=== PATIENT | female | born 1965 | race Caucasian/White ===

== ENCOUNTER 2019-01-24 18:15 | Emergency (ER) | payer MEDICAID ==
[~2019-01-24] VITALS: Ht 157.5 cm; Wt 88.9 kg
[2019-01-24 18:30] VITALS: BP 122/85
--- NOTE | 2019-01-24 18:35 | NUR ---
PT TO BED 5 WITH STEADY GAIT
--- NOTE | 2019-01-24 18:50 | NUR ---
53/F C/O ABSCESS TO PTS CHIN X 1-2 WEEK. NO DRAINAGE. PT TRIED TO "POP" THE ABSCESS. PT ADDS COLD SYMPTOMS, SORE THROAT 8/10, PRODUCTIVE COUGH. STATES FEELS LIKE SOMETHING STUCK IN THROAT, PAIN WITH SWALLOWING. DENIES FEVER, SOB. LUNGS CTAB. OROPHARYNX MILD DIFFUSE ERYTHEMA. NO EXUDATES. ABSCESS ON CHIN WITH SCABBING. NO ACTIVE DRAINAGE. PMH- ASTHMA, DM, HTN
[2019-01-24] MEDS ORDERED: LIDOCAINE/EPI 1% 1:100000 20 ML VIAL INJ STA (19:15)
[2019-01-24] MEDS ORDERED: CEPHALEXIN 500 MG CAP PO STA (19:15)
[2019-01-24] MEDS ORDERED: SULFAMETH/TRIMETH DS 800/160MG 1 TAB PO STA (19:15)
--- NOTE | 2019-01-24 19:19 | NUR ---
REPORT TO PATEL HAYES. PT IN STABLE CONDITION. TX OF CARE AT THIS TIME.
--- NOTE | 2019-01-24 19:25 | NUR ---
DR. THOMAS BEDSIDE EVALUATING PT
--- NOTE | 2019-01-24 19:51 | NUR ---
PT. STATED THAT SHE ALREADY HAD TDAP VACCINE. EDUCATED PATIENT ON TDAP. WILL CONTINUE TO MONITOR.
[2019-01-24 20:07] VITALS: BP 136/72
--- NOTE | 2019-01-24 20:07 | NUR ---
Patient discharged with v/s stable. Written and verbal after care instructions given and explained. Patient alert, oriented and verbalized understanding of instructions. Ambulatory with to car. All questions addressed prior to discharge. ID band removed. Patient advised to follow up with PMD. Rx of BACTRIM; KEFLEX given. Patient educated on indication of medication including possible reaction and side effects. Opportunity to ask questions provided and answered.
== END 2019-01-24 20:07 | disposition home or self-care (01) ==
LOC: MED 18:15
DX: L02.01 Cutaneous abscess of face (principal); L03.211 Cellulitis of face; L02.413 Cutaneous abscess of right upper limb; J45.909 Unspecified asthma, uncomplicated; E11.9 Type 2 diabetes mellitus without complications; I10 Essential (primary) hypertension
CPT/HCPCS: 10061; 99284; J2001; 90715; 99283

== ENCOUNTER 2019-02-24 14:25 | Inpatient (IN) | payer MEDICAID ==
[~2019-02-24] VITALS: Ht 157.5 cm; Wt 88.9 kg
[2019-02-24 14:30] VITALS: BP 126/67
--- NOTE | 2019-02-24 14:42 | NUR ---
PT AMBULATED TO BED 3
--- NOTE | 2019-02-24 14:48 | NUR ---
PATIENT BIB WITH C/O DIZZINESS AND WEAKNESS X4 WKS. THIS MORNING PT HAD CHEST PAIN RADIATING TO RIGHT ARM NUMBNESS, LASTED 15 MINUTE. DENIES PAIN AT THIS TIME. HX OF HTN. PATIENT IS AAOX4 LUNGS CLEAR BL; HR EVEN AND REGULAR; PT DENIES ANY FEVER, CP, SOB, OR COUGH AT THIS TIME; DENIES N/V/D; SKIN IS PINK/WARM/DRY; DENIES PAIN VSS; PATIENT POSITIONED FOR COMFORT; HOB ELEVATED; BEDRAILS UP X2; BED DOWN. ER MD MADE AWARE OF PT STATUS.
--- NOTE | 2019-02-24 15:46 | NUR ---
Patient being evaluated by SHARDA RODRIGUEZ at bedside.
[2019-02-24] MEDS ORDERED: ASPIRIN 325 MG TAB PO ONE (15:55)
--- NOTE | 2019-02-24 16:00 | NUR ---
PATIENT C/O CHEST PAIN COMING BACK AGAIN, DR. ROBIN AWARE, WILL MEDICATED.
[2019-02-24 16:20] LABS: BASOPHILS % (AUTO) 0.5 % (0.0-2.0); EOSINOPHILS # (AUTO) 0.1 K/uL (0-0.4); EOSINOPHILS % (AUTO) 1.7 % (0.0-4.0); HEMATOCRIT 35.2 % (36-48); HEMOGLOBIN 11.4 g/dL (12.0-16.0); LYMPHOCYTES # (AUTO) 2.1 K/uL (2.5-16.5); LYMPHOCYTES % (AUTO) 47.6 % (20.5-51.1); MEAN CORPUSCULAR HEMOGLOBIN 26 pg (27-31); MEAN CORPUSCULAR HGB CONC 33 g/dL (33-37); MEAN CORPUSCULAR VOLUME 80.7 fL (80-94); MONOCYTES # (AUTO) 0.3 K/uL (0.8-1.0); MONOCYTES % (AUTO) 6.3 % (1.7-9.3); NEUTROPHILS # (AUTO) 1.9 K/uL (1.8-7.7); NEUTROPHILS % (AUTO) 43.9 % (42.2-75.2); PLATELET COUNT (AUTO) 222 K/uL (140-450); RED BLOOD CELL COUNT(AUTO) 4.37 MIL/uL (4.20-5.40); WHITE BLOOD COUNT (AUTO) 4.4 K/uL (4.8-10.8)
[2019-02-24 16:43] LABS: CHOL/HDL RATIO 4.5 (1-4.5)
--- NOTE | 2019-02-24 17:00 | NUR ---
PT STATED FEELING BETTER NOW, VSS, DENIES PAIN.
[2019-02-24 17:08] LABS: ALBUMIN 3.1 g/dL (3.4-5.0); ANION GAP 11.9 (8-16); CARBON DIOXIDE 26.6 mmol/L (21-32); CREATININE 1.2 mg/dL (0.6-1.3); POTASSIUM 4.5 mmol/L (3.5-5.1); TOTAL BILIRUBIN 0.2 mg/dL (0.0-1.0)
[2019-02-24] MEDS ORDERED: ATORVASTATIN 80 MG TAB PO ONE (17:25)
[2019-02-24] MEDS ORDERED: NACL 0.9% 1,000 ML IV ONE (17:25)
[2019-02-24] MEDS ORDERED: INSULIN REGULAR, HUMAN 100 UNIT/ML VIAL IVP ONE (17:25)
[2019-02-24] MEDS ORDERED: DOCUSATE SODIUM 100 MG GELCAP PO PRN (17:30)
[2019-02-24] MEDS ORDERED: HYDROcodone/APAP 7.5/325 MG 1 TAB PO PRN (17:30)
[2019-02-24] MEDS ORDERED: ACETAMINOPHEN 325 MG TAB PO PRN (17:30)
[2019-02-24] MEDS ORDERED: ONDANSETRON 4 MG/2 ML VIAL IM/IVP PRN (17:30)
[2019-02-24] MEDS ORDERED: MORPHINE SULFATE 2 MG/ML SYR IVP PRN (17:30)
[2019-02-24] MEDS ORDERED: DEXTROSE 50% 50 ML SYR IVP PRN (17:30)
[2019-02-24 17:34] LABS: APPEARANCE,URINE CLEAR (CLEAR); BILIRUBIN,URINE NEGATIVE (NEGATIVE); BLOOD, URINE NEGATIVE (NEGATIVE); COLOR,URINE YELLOW (YELLOW); LEUKOCYTE ESTERASE ,URINE NEGATIVE (NEGATIVE); NITRITE, URINE NEGATIVE (NEGATIVE); UGLUCOSE 3+ (NEGATIVE)
--- NOTE | 2019-02-24 17:34 | NUR ---
IV INSERTED TO RIGHT AC 20GA WITH GOOD BLOOD RETURN, NS BOLUS STARTED, PT TOLERATED WELL.
[2019-02-24] MEDS ORDERED: DIPH50CA69 PO ×2 (17:48→19:28)
[2019-02-24] MEDS ORDERED: HYDR-5122 PO (17:48)
[2019-02-24] MEDS ORDERED: HUM SUBQ (17:48)
[2019-02-24] MEDS ORDERED: LISI-420 PO ×2 (17:48→19:28)
[2019-02-24] MEDS ORDERED: ATOR40TA PO (17:48)
[2019-02-24] MEDS ORDERED: GABA100C PO (17:48)
[2019-02-24] MEDS ORDERED: FLUO20CA27 PO ×2 (17:48→19:28)
[2019-02-24] MEDS ORDERED: TEMA30CA23 PO ×2 (17:48→19:28)
[2019-02-24] MEDS ORDERED: INSU100S22 SUBQ (17:48)
[2019-02-24] MEDS ORDERED: BACL10TA4 PO ×3 (17:48→19:28)
[2019-02-24] MEDS ORDERED: METF-350 PO (17:53)
[2019-02-24] MEDS ORDERED: NAPR-1003 PO ×2 (17:53→19:28)
[2019-02-24] MEDS ORDERED: GABA-638 PO ×2 (17:53→19:28)
[2019-02-24] MEDS ORDERED: METO-486 PO ×2 (17:53→19:28)
[2019-02-24] MEDS ORDERED: BENZ0.5T85 PO (17:53)
[2019-02-24] MEDS ORDERED: CLON0.1T42 PO ×2 (17:53→19:28)
[2019-02-24] MEDS ORDERED: OMEP40EC24 PO (17:53)
[2019-02-24 17:56] LABS: RBC,URINE NONE SEEN /HPF (0-5)
[2019-02-24 17:57] LABS: WBC,URINE NONE SEEN /HPF (0-5); YEAST,URINE Moderate /HPF (None Seen)
--- NOTE | 2019-02-24 18:00 | NUR ---
NOT ABLE TO GIVE LIPITOR 80 MG AT THIS TIME DUE TO MEDICATION NOT AVAILABLE, FAMILY LAWYER AWARE, DR. ROBIN AWARE.
[2019-02-24 18:11] LABS: BARBITURATE, URINE NEG. ng/ml (NEG <=200); BENZODIAZEPINE, URINE NEG. ng/mL (NEG <=200); CANNABINOID, URINE NEG. ng/mL (NEG <=50); COCAINE, URINE NEG. ng/mL (NEG <=300); OPIATE, URINE NEG. ng/mL (NEG <=2000); PHENCYCLIDINE SCREEN,URINE NEG. ng/mL (NEG <=25)
--- NOTE | 2019-02-24 18:15 | NUR ---
RECEIVED PT FROM ED NURSE HARRIS. PT AWAKE, ALERT AND AMBULATORY. IV SITE R AC 20 G. SKIN INTACT, HOWEVER, SMALL SORES ARE NOTED SCATTERED THROUGHOUT ALL THE EXTREMITIES. WILL CULTURE THE SORES. OTHERWISE SKIN IS INTACT. ON ROOM AIR. IS AT BEDSIDE.
--- NOTE | 2019-02-24 18:15 | NUR ---
Patient admitted to care of DR. LÓPEZ. Admited to TELEMETRY ROOM 126A, Belongings list completed. Report to ANIRUDH RN AT BEDSIDE, PATIENT VSS, DENIES PAIN AT THIS TIME.
[2019-02-24 18:25] LABS: MAGNESIUM 1.9 mg/dL (1.8-2.4); PHOSPHORUS 3.4 mg/dL (2.5-4.9); THYROID STIMULATING HORMONE 1.67 uIU/mL (0.34-3.74)
--- NOTE | 2019-02-24 18:35 | NUR ---
PT SEEN BY DR OLEA.
--- NOTE | 2019-02-24 18:53 | NUR ---
VITALS UPON ADMISSION: BP 107/64, HR 74, O2 99, TEMP 98.0, RR 18.
--- NOTE | 2019-02-24 18:53 | NUR ---
CURRENT BLOOD GLUCOSE IS 240
[2019-02-24] MEDS: NICOTINE TRANSD SYS 14 MG/24 HR PATCH TD SCH (19:15)
--- NOTE | 2019-02-24 19:22 | NUR ---
PT ENDORSED TO ADJUSTER LEADER NURSE IN STABLE CONDITION. NURSE CARLENE ENDORSED TO TAKE A SWAB OF PT'S SKIN SORES FOR CULTURES
--- NOTE | 2019-02-24 19:23 | NUR ---
RECEIVED PT FROM AM SHIFT; PT ON BED, AWAKE ALERT ORIENTED X 4, PT ABLE TO AMBULATE W/ STEADY GAIT. W/ AT BEDSIDE. WITH IV ON THE RIGHT AC G 20, WILL START IV ORDERED. PT RECENTLY CAME FROM ED ENDORSED. PT EATING AT THIS TIME, ABLE TO TOLERATE CCHO DIET. ORIENTED TO UNIT. PLACED ON LOW BED POSITION.
[2019-02-24] MEDS ORDERED: METF1000 PO (19:28)
[2019-02-24] MEDS ORDERED: NITROGLYCERIN 0.4 MG TAB SL PRN (19:50)
[2019-02-24] MEDS ORDERED: NAPROXEN SODIUM 500 MG PO SCH (19:55)
[2019-02-24] MEDS ORDERED: diphenhydrAMINE 50 MG CAP PO SCH ×2 (19:55→20:19)
[2019-02-24 20:00] VITALS: BP 120/59
[2019-02-24] MEDS ORDERED: FLUCONAZOLE 100 MG TAB PO ONE (20:15)
[2019-02-24] MEDS: NACL 0.9% 1,000 ML IV SCH (20:39)
--- NOTE | 2019-02-24 20:40 | NUR ---
PT DOS NOT WANT HER NICOTINE PATCH TO BE APPLIED. SHE SAID SHE SMOKES ONLY 3-4 CIGARETTES OCCASIONALLY. AND FINISHING THE WHOLE PACK FOR CIGARETTES OCCASIONALLY TOO. INFORMED HER THE RISKS AND BENEFITS AND WILL INFORM DR. MORELAND.
[2019-02-24] MEDS ORDERED: cloNIDine 0.1 MG TAB PO SCH (21:00)
[2019-02-24] MEDS ORDERED: metFORMIN 500 MG TAB PO SCH (21:00)
[2019-02-24] MEDS: BLOOD GLUCOSE MONITORING 1 DEV DEV FS SCH (21:17)
--- NOTE | 2019-02-24 21:27 | NUR ---
PT SAID SHE DOES NOT WANT TAKE HER CLONIDINE CATAPRES 0.2 MG. SHE SAID THAT SHE NEVER TAKES THAT. INFORMED DR. MANN, AND HER BP IS 120/59; HR 80; 98%; 0/10 PAIN. 98. 3 TEMP
[2019-02-24] MEDS: INSULIN LISPRO SLIDING SCALE 100 UNITS/ML VIAL SUBQ PRN (21:32)
--- NOTE | 2019-02-24 21:53 | NUR ---
INFORMED PHARAMACY THAT BENZTROPIN FOR VERIFICATION. SHE SAID THAT SHE WILL DO IT.BUT HAVING HARD TIME IN THE SYSTEM FOR NOW DUE TO THE ORDER
[2019-02-24] MEDS: BENZTROPINE 1 MG TAB PO SCH (22:07)
[2019-02-24] MEDS: TEMAZEPAM 15 MG CAP PO SCH (22:08)
[2019-02-24] MEDS: INSULIN LANTUS 100 UNITS/ML 10 ML VIAL SUBQ SCH (22:11)
[2019-02-24] MEDS: LISINOPRIL 20 MG TAB PO SCH (22:17)
[2019-02-24] MEDS: METOCLOPRAMIDE 10 MG TAB PO SCH (22:17)
[2019-02-25] VITALS: BP 120/50
--- NOTE | 2019-02-25 00:02 | NUR ---
FOR ANH CEBALLOS WHEELED TO THE NUCLEAR MED Addendum: 02/25/19 at 0218 by Jordyn Banks RN MIKE DALEY
--- NOTE | 2019-02-25 02:04 | NUR ---
PT GIVEN MORPHINE, PT SAID ABD PAIN IS 01/04 Addendum: 02/25/19 at 0804 by Jordyn Banks RN DELETE NOTE- DIFFERENT PATIENT
[2019-02-25 04:00] VITALS: BP 101/52
[2019-02-25] MEDS: BLOOD GLUCOSE MONITORING 1 DEV DEV FS SCH ×4 (05:43→20:02)
[2019-02-25] MEDS: NACL 0.9% 1,000 ML IV SCH (06:16)
--- NOTE | 2019-02-25 06:18 | NUR ---
PT ABDOMINAL PAIN 11/04, ADMINISTERED MORPHINE, WILL RE-ASSESS LATER. Addendum: 02/25/19 at 0804 by Jordyn Banks RN DELETE NOTE- DIFFERENT PATIENT
[2019-02-25] MEDS: INSULIN LISPRO SLIDING SCALE 100 UNITS/ML VIAL SUBQ PRN ×4 (06:23→21:34)
[2019-02-25] MEDS: METOCLOPRAMIDE 10 MG TAB PO SCH ×4 (06:30→21:21)
--- NOTE | 2019-02-25 07:20 | NUR ---
ENDORSED TO AM SHIFT PT IN STABLE CONDITION
--- NOTE | 2019-02-25 07:21 | NUR ---
PATIENT HANDOFF REPORT CONDUCTED BY PHYSICAL THERAPY ASSISTANT NURSE FOR CONTINUITY OF CARE. PATIENT IS RESTING IN BED, NORMAL SALINE RUNNING IN RIGHT AC. PATIENT TOLERATING WELL. BED IN LOWEST POSITION, CALL LIGHT ON AND WITHIN REACH. WILL CONTINUE TO MONITOR.
[2019-02-25 07:23] LABS: BASOPHILS % (AUTO) 0.3 % (0.0-2.0); EOSINOPHILS # (AUTO) 0.1 K/uL (0-0.4); EOSINOPHILS % (AUTO) 1.6 % (0.0-4.0); HEMATOCRIT 33.2 % (36-48); LYMPHOCYTES # (AUTO) 2.5 K/uL (2.5-16.5); LYMPHOCYTES % (AUTO) 52.8 % (20.5-51.1); MEAN CORPUSCULAR HEMOGLOBIN 27 pg (27-31); MEAN CORPUSCULAR HGB CONC 33 g/dL (33-37); MEAN CORPUSCULAR VOLUME 79.5 fL (80-94); MONOCYTES # (AUTO) 0.3 K/uL (0.8-1.0); MONOCYTES % (AUTO) 6.5 % (1.7-9.3); NEUTROPHILS # (AUTO) 1.9 K/uL (1.8-7.7); NEUTROPHILS % (AUTO) 38.8 % (42.2-75.2); PLATELET COUNT (AUTO) 202 K/uL (140-450); RED BLOOD CELL COUNT(AUTO) 4.17 MIL/uL (4.20-5.40); RED CELL DISTRIBUTION WIDTH 14.9 % (11.6-13.7); WHITE BLOOD COUNT (AUTO) 4.8 K/uL (4.8-10.8)
[2019-02-25 08:00] VITALS: BP 107/56
[2019-02-25 08:01] LABS: MAGNESIUM 1.8 mg/dL (1.8-2.4); PHOSPHORUS 3.2 mg/dL (2.5-4.9)
[2019-02-25] MEDS ORDERED: BACLOFEN 10 MG TAB PO SCH (09:00)
[2019-02-25] MEDS ORDERED: NON-FORMULARY ITEM (Omeprazole* (Prilosec*) 1 CAP) PO SCH (09:00)
[2019-02-25] MEDS: NICOTINE TRANSD SYS 14 MG/24 HR PATCH TD SCH (09:00)
--- NOTE | 2019-02-25 09:30 | NUR ---
PATIENT IS IN BED RESTING, MEDICATIONS ADMINISTERED AND TOLERATED WELL. PATIENT REFUSED NICOTINE PATCH. PATIENT REPORTS MILD CHEST MUSCLE PAIN. BED IN LOW POSITION, CALL LIGHT ON AND WITHIN REACH. WILL CONTINUE TO MONITOR.
[2019-02-25] MEDS: LISINOPRIL 20 MG TAB PO SCH ×2 (09:40→21:27)
[2019-02-25] MEDS: BENZTROPINE 1 MG TAB PO SCH ×2 (09:41→21:21)
[2019-02-25] MEDS: ATORVASTATIN 20 MG TAB PO SCH (09:41)
[2019-02-25] MEDS: FLUoxetine 20 MG CAP PO SCH (09:41)
[2019-02-25] MEDS: GABAPENTIN 300 MG CAP PO SCH ×3 (09:41→16:38)
[2019-02-25] MEDS: ASPIRIN 81 MG TAB.CHEW PO SCH (09:42)
[2019-02-25 09:49] LABS: ANION GAP 14.5 (8-16); CARBON DIOXIDE 22.4 mmol/L (21-32); CREATININE 0.6 mg/dL (0.6-1.3); POTASSIUM 3.9 mmol/L (3.5-5.1)
[2019-02-25 09:52] LABS: CHOL/HDL RATIO 3.8 (1-4.5)
[2019-02-25] MEDS: PANTOPRAZOLE 40 MG TABEC PO SCH (10:32)
--- NOTE | 2019-02-25 11:09 | NUR ---
PATIENT IS SLEEPING IN BED, OBSERVED CHEST RISE AND FALL. NO SIGNS OF DISTRESS NOTED AT THIS TIME. PATIENT MADE A PHONE CALL TO HER . CALL LIGHT ON AND WITHIN REACH, BED IN LOW POSITION, WILL CONTINUE TO MONITOR.
[2019-02-25 12:00] VITALS: BP 105/68
[2019-02-25] MEDS ORDERED: BACLOFEN 10 MG TAB PO PRN (12:15)
--- NOTE | 2019-02-25 13:46 | NUR ---
FREQUENT ROUNDING ON PT PT APPEARS STABLE AND IN NO APPARENT DISTRESS ALL SAFETY MEASURES ARE IN PLACE WILL CONTINUE TO MONITOR
--- NOTE | 2019-02-25 15:38 | NUR ---
FREQUENT ROUNDING ON PT PT APPEARS STABLE AND IN NO APPARENT DISTRESS. ALL SAFETY MEASURES ARE IN PLACE.
[2019-02-25 16:00] VITALS: BP 129/77
[2019-02-25] MEDS: metFORMIN 500 MG TAB PO SCH (16:38)
--- NOTE | 2019-02-25 17:30 | NUR ---
PATIENT IS RESTING IN BED, FAMILY AT BEDSIDE, INSULIN GIVEN FOR HIGH BLOOD GLUCOSE. PATIENT IS EATING DINNER, TOLERATING WELL. BED IN LOW POSITION, CALL LIGHT ON WITHIN REACH. WILL CONTINUE TO MONITOR.
[2019-02-25 20:00] VITALS: BP 139/73
[2019-02-25] MEDS: TEMAZEPAM 15 MG CAP PO SCH (21:21)
[2019-02-25] MEDS: INSULIN LANTUS 100 UNITS/ML 10 ML VIAL SUBQ SCH (21:29)
--- NOTE | 2019-02-25 22:00 | NUR ---
PATENT MEDICATED; NO SIGNS AND SYMPTOMS OF DISTRESS.NO COMPLAINTS OF PAIN.WILL; CONTINUE TO MONITOR
[2019-02-26] VITALS: BP 120/68
[2019-02-26 05:54] VITALS: BP 121/70
[2019-02-26] MEDS: BLOOD GLUCOSE MONITORING 1 DEV DEV FS SCH ×2 (06:16→11:42)
[2019-02-26] MEDS: INSULIN LISPRO SLIDING SCALE 100 UNITS/ML VIAL SUBQ PRN ×2 (06:17→12:25)
--- NOTE | 2019-02-26 07:20 | NUR ---
RECEIVED PT FROM STRESS ANALYST NURSE AT BEDSIDE FOR CONTINUITY OF CARE; PT ON BED, AWAKE ALERT ORIENTED X 4, PT ABLE TO AMBULATE W/ STEADY GAIT TO BATHROOM. IV ON THE RIGHT AC G 20, SALINE LOCKED. UPDATED BOARD. UPDATED PATIENT WITH PLAN OF CARE. PATIENT DENIES PAIN. RESPIRATIONS EVEN AND UNLABORED ON ROOM AIR. NO SOB OR DISTRESS NOTED. CALL LIGHT WITHIN REACH, WILL CONTINUE TO MONITOR PATIENT.
[2019-02-26 07:29] LABS: BASOPHILS % (AUTO) 0.3 % (0.0-2.0); EOSINOPHILS # (AUTO) 0.1 K/uL (0-0.4); EOSINOPHILS % (AUTO) 1.3 % (0.0-4.0); HEMATOCRIT 34.5 % (36-48); HEMOGLOBIN 11.2 g/dL (12.0-16.0); MEAN CORPUSCULAR HEMOGLOBIN 26 pg (27-31); MEAN CORPUSCULAR HGB CONC 33 g/dL (33-37); MEAN CORPUSCULAR VOLUME 79.5 fL (80-94); MONOCYTES # (AUTO) 0.4 K/uL (0.8-1.0); MONOCYTES % (AUTO) 7.8 % (1.7-9.3); NEUTROPHILS # (AUTO) 2.9 K/uL (1.8-7.7); NEUTROPHILS % (AUTO) 53.6 % (42.2-75.2); PLATELET COUNT (AUTO) 213 K/uL (140-450); RED BLOOD CELL COUNT(AUTO) 4.33 MIL/uL (4.20-5.40); RED CELL DISTRIBUTION WIDTH 15.5 % (11.6-13.7); WHITE BLOOD COUNT (AUTO) 5.3 K/uL (4.8-10.8)
[2019-02-26 07:36] VITALS: BP 105/58
--- NOTE | 2019-02-26 07:43 | NUR ---
DOCTORS DOING THE ROUNDS. WILL WAIT FOR THEIR ORDERS.
[2019-02-26] MEDS: METOCLOPRAMIDE 10 MG TAB PO SCH ×2 (07:45→11:54)
[2019-02-26] MEDS: metFORMIN 500 MG TAB PO SCH (07:46)
--- NOTE | 2019-02-26 07:46 | NUR ---
SCHEDULED MEDICATIONS GIVEN. PATIENT TOLERATED THEM WELL. PT CURRENTLY SITTING UP IN BED EATING BREAKFAST. WILL CONTINUE TO MONITOR PATIENT.
[2019-02-26 07:47] LABS: ANION GAP 11.5 (8-16); CARBON DIOXIDE 25.5 mmol/L (21-32); CREATININE 0.7 mg/dL (0.6-1.3)
[2019-02-26 07:49] LABS: MAGNESIUM 1.8 mg/dL (1.8-2.4); PHOSPHORUS 3.9 mg/dL (2.5-4.9)
[2019-02-26 08:07] LABS: T4 (THYROXINE) 7.2 ug/dL (4.5-12.0)
[2019-02-26] MEDS: FLUoxetine 20 MG CAP PO SCH (08:19)
[2019-02-26] MEDS: ATORVASTATIN 20 MG TAB PO SCH (08:19)
[2019-02-26] MEDS: ASPIRIN 81 MG TAB.CHEW PO SCH (08:19)
[2019-02-26] MEDS: BENZTROPINE 1 MG TAB PO SCH (08:20)
[2019-02-26] MEDS: GABAPENTIN 300 MG CAP PO SCH ×2 (08:20→12:00)
[2019-02-26] MEDS: PANTOPRAZOLE 40 MG TABEC PO SCH (08:20)
[2019-02-26] MEDS: LISINOPRIL 20 MG TAB PO SCH (08:20)
[2019-02-26] MEDS: NICOTINE TRANSD SYS 14 MG/24 HR PATCH TD SCH (08:28)
--- NOTE | 2019-02-26 08:30 | NUR ---
SCHEDULED MEDICATIONS GIVEN. PATIENT TOLERATED THEM WELL. DISCHARGE QUESTIONS ANSWERED. INFORMED PATIENT ABOUT DISCHARGE PROCESS. WILL UPDATE PATIENT WITH DISCHARGE PROCESS. WILL CONTINUE TO MONITOR PATIENT.
[2019-02-26] MEDS ORDERED: BACL10TA4 PO (08:44)
[2019-02-26] MEDS ORDERED: METF500T PO (08:44)
--- NOTE | 2019-02-26 08:52 | NUR ---
PATIENT HAS BEEN SCREENED AND CATEGORIZED MODERATE NUTRITION RISK. PATIENT WILL BE SEEN WITHIN 3-5 DAYS OF ADMISSION. 02/27/19 03/01/[address]
--- NOTE | 2019-02-26 10:45 | NUR ---
SPORTS BOOK SERVER ASHWIN SCOTT TO SPEAK WITH PATIENT.
[2019-02-26 12:00] VITALS: BP 131/65
--- NOTE | 2019-02-26 13:05 | NUR ---
AT BEDSIDE. DISCHARGE INSTRUCTIONS AND EDUCATION GIVEN TO PATIENT. PRESCRIPTION GIVEN TO PATIENT. INFORMED PATIENT ABOUT FOLLOW UP WITH PCP ON THURSDAY 03/01, TAKE ALL MEDICATIONS PRESCRIBED, GO TO ER IF SUFFERING ANY SYMPTOMS. PATIENT VERBALIZED UNDERSTANDING. IV REMOVED, IV CATHETER INTACT, MINIMAL BLEEDING NOTED. ID BANDS CUT. PATIENT WILL NOW DRESS IN HER CLOTHING AND GET READY TO BE DISCHARGED HOME.
--- NOTE | 2019-02-26 13:20 | NUR ---
PATIENT AMBULATED OFF FLOOR WITH SHAQUILLE DUKE TO BE DISCHARGED HOME WITH HER . PATIENT IN STABLE CONDITION AND TOOK ALL HER BELONGINGS WITH HER.
== END 2019-02-26 13:22 | disposition home or self-care (01) | DRG 420 ==
LOC: MED 14:25 → MMU 17:30
PROVIDERS: ADMIT General Practice; ATTEND General Practice
DX: E11.00 Type 2 diabetes mellitus with hyperosmolarity without nonketotic hyperglycemic-hyperosmolar coma (NKHHC) (principal); G93.41 Metabolic encephalopathy; E87.2 Acidosis; E44.1 Mild protein-calorie malnutrition; E11.40 Type 2 diabetes mellitus with diabetic neuropathy, unspecified; B37.9 Candidiasis, unspecified; E87.1 Hypo-osmolality and hyponatremia; I10 Essential (primary) hypertension; E78.5 Hyperlipidemia, unspecified; F32.9 Major depressive disorder, single episode, unspecified; K21.9 Gastro-esophageal reflux disease without esophagitis; E86.0 Dehydration; G47.51 Confusional arousals; F51.9 Sleep disorder not due to a substance or known physiological condition, unspecified; F17.200 Nicotine dependence, unspecified, uncomplicated; F41.1 Generalized anxiety disorder; Z68.35 Body mass index [BMI] 35.0-35.9, adult; Z83.3 Family history of diabetes mellitus; Z82.49 Family history of ischemic heart disease and other diseases of the circulatory system; Z80.0 Family history of malignant neoplasm of digestive organs; Z91.19 Patient's noncompliance with other medical treatment and regimen
CPT/HCPCS: 36415; 36600; 70450; 71045; 80048; 80053; 80305; 81001; 82140; 82150; 82550; 82553; 82803; 82948; 83036; 83605; 83690; 83735; 83880; 84100; 84436; 84443; 84484; 85025; 85379; 85610; 85730; 87040; 87081; 87086; 93005; 96361; 96374; 99285; J1644; J1815; J7030; J8597

== ENCOUNTER 2019-03-20 16:54 | Emergency (ER) | payer MEDICAID ==
[~2019-03-20] VITALS: Ht 157.5 cm; Wt 83.9 kg
[~2019-03-20 16:54] MED LIST: ATOR40TA PO; BACL10TA4 PO; BENZ0.5T85 PO; FLUO20CA27 PO; GABA-638 PO; INSU100S22 SUBQ; LISI-420 PO; METF500T PO; METO-486 PO; NAPR-1003 PO; OMEP40EC24 PO; TEMA30CA23 PO
[2019-03-20 16:56] VITALS: BP 156/80
--- NOTE | 2019-03-20 17:04 | NUR ---
PT AMBULATED TO ER BED 04
--- NOTE | 2019-03-20 17:18 | NUR ---
C/O LEFT HAND PAIN 11/04 X 1 WEEK WITH A GENERALIZED BODY RASH THAT PT STATES HAS BEEN THERE SINCE "AUGUST". PT BELIEVES SHE WALKED THROUGH A "HIVE OF FLEAS". PT DENIES [place]. HR 108. PT ALERT AND AWAKE, CONTINUES TO DIAGNOSE ONESELF. +CMS TO L HAND. MED HX: DM,ANXIETY, DEPRESSION
--- NOTE | 2019-03-20 17:42 | NUR ---
ER AT BEDSIDE
[2019-03-20] MEDS ORDERED: IBUPROFEN 600 MG TAB PO ONE (18:00)
[2019-03-20] MEDS ORDERED: HYDROcodone/APAP 5/325 MG 1 TAB TAB PO ONE (18:00)
--- NOTE | 2019-03-20 18:09 | NUR ---
PT SUDDENLY CRYING HYSTERICALLY THAT SHE IS IN PAIN. NORCO AND MOTRIN PO ADMINISTERED.
--- NOTE | 2019-03-20 18:30 | NUR ---
PT NO LONGER CRYING. PT STATES THE "PARASITE IS MOVING UP HER L THUMB". PAIN 8/10 PER PATIENT
[2019-03-20 18:31] VITALS: BP 151/74
--- NOTE | 2019-03-20 18:31 | NUR ---
ROBERTA TO JULIA OR CARLENE. PT STATES SHE WILL CALL FOR RIDE
--- NOTE | 2019-03-20 18:31 | NUR ---
Patient discharged with v/s stable. Written and verbal after care instructions given and explained REGARDING CONTACT DERMATITIS. Patient alert, oriented and verbalized understanding of instructions. Ambulatory with steady gait. All questions addressed prior to discharge. ID band removed. Patient advised to follow up with PMD. Rx of MOTRIN AND MUPIROCIN TOPICAL CREAM given. Patient educated on indication of medication including possible reaction and side effects. Opportunity to ask questions provided and answered.
== END 2019-03-20 18:31 | disposition home or self-care (01) ==
LOC: MED 16:54
DX: L30.9 Dermatitis, unspecified (principal); E11.9 Type 2 diabetes mellitus without complications; I10 Essential (primary) hypertension; Z79.4 Long term (current) use of insulin; Z79.899 Other long term (current) drug therapy
CPT/HCPCS: 99283

== ENCOUNTER 2019-04-26 22:09 | Emergency (ER) | payer MEDICAID ==
[~2019-04-26] VITALS: Ht 157.5 cm; Wt 83.9 kg
[2019-04-26 22:18] VITALS: BP 150/80
[2019-04-26] MEDS ORDERED: LORazepam 2 MG/ML VIAL IM ONE (23:20)
== END 2019-04-26 23:40 | disposition home or self-care (01) ==
LOC: MED 22:09
DX: R20.2 Paresthesia of skin (principal); F15.10 Other stimulant abuse, uncomplicated; E11.9 Type 2 diabetes mellitus without complications; I10 Essential (primary) hypertension; F41.9 Anxiety disorder, unspecified; Z98.890 Other specified postprocedural states; Z79.4 Long term (current) use of insulin; Z79.899 Other long term (current) drug therapy
CPT/HCPCS: 96372; 99283; J2060

== ENCOUNTER 2019-05-19 17:15 | Emergency (ER) | payer MEDICAID ==
[~2019-05-19] VITALS: Ht 158.8 cm; Wt 86.2 kg
[2019-05-19 17:30] VITALS: BP 149/67
[2019-05-19] MEDS ORDERED: NACL 0.9% 1,000 ML IV ONE (17:55)
--- NOTE | 2019-05-19 17:58 | NUR ---
ERMD AT BEDSIDE
--- NOTE | 2019-05-19 17:58 | NUR ---
53 Y/O F C/C ABSCESS ON LEFT LABIA GLAND. PAIN 01/04. PT NKA. HX DM,ANXIETY. RX INSULIN, PT NONCOMPLIANT. BS CURRENTLY HIGH, TAKEN IN TRIAGE.
[2019-05-19] MEDS ORDERED: LORazepam 2 MG/ML VIAL IVP ONE (18:00)
[2019-05-19] MEDS ORDERED: LIDOCAINE/EPI 1% 1:100000 20 ML VIAL INJ ONE (18:00)
--- NOTE | 2019-05-19 18:30 | NUR ---
GERSON WITH FEMALE M48 M60 ARMOR CREWMAN KATHARINE SWEENEY AT BEDSIDE
[2019-05-19 18:37] LABS: BASOPHILS % (AUTO) 0.4 % (0.0-2.0); EOSINOPHILS # (AUTO) 0.2 K/uL (0-0.4); EOSINOPHILS % (AUTO) 3.4 % (0.0-4.0); HEMATOCRIT 34.6 % (36-48); HEMOGLOBIN 11.2 g/dL (12.0-16.0); LYMPHOCYTES # (AUTO) 1.5 K/uL (2.5-16.5); LYMPHOCYTES % (AUTO) 26.6 % (20.5-51.1); MEAN CORPUSCULAR HEMOGLOBIN 26 pg (27-31); MEAN CORPUSCULAR HGB CONC 32 g/dL (33-37); MEAN CORPUSCULAR VOLUME 78.6 fL (80-94); MONOCYTES # (AUTO) 0.5 K/uL (0.8-1.0); MONOCYTES % (AUTO) 8.7 % (1.7-9.3); NEUTROPHILS # (AUTO) 3.4 K/uL (1.8-7.7); NEUTROPHILS % (AUTO) 60.9 % (42.2-75.2); PLATELET COUNT (AUTO) 300 K/uL (140-450); WHITE BLOOD COUNT (AUTO) 5.6 K/uL (4.8-10.8)
[2019-05-19 18:38] LABS: APPEARANCE,URINE CLEAR (CLEAR); BILIRUBIN,URINE NEGATIVE (NEGATIVE); BLOOD, URINE NEGATIVE (NEGATIVE); COLOR,URINE YELLOW (YELLOW); LEUKOCYTE ESTERASE ,URINE NEGATIVE (NEGATIVE); NITRITE, URINE NEGATIVE (NEGATIVE); UGLUCOSE 3+ (NEGATIVE)
--- NOTE | 2019-05-19 18:40 | NUR ---
KATHARINE CONTRERAS WAS FEMALE CHAPARONE FOR I & D
[2019-05-19 18:57] LABS: ANION GAP 12.5 (8-16); CARBON DIOXIDE 27.8 mmol/L (21-32); CREATININE 0.9 mg/dL (0.6-1.3); POTASSIUM 4.3 mmol/L (3.5-5.1)
[2019-05-19] MEDS ORDERED: INSULIN REGULAR, HUMAN 100 UNIT/ML VIAL SUBQ ONE (19:15)
--- NOTE | 2019-05-19 19:17 | NUR ---
REPORT GIVEN TO SAADIA SWEENEY FOR CONTINUITY OF CARE
[2019-05-19 20:20] VITALS: BP 149/67
--- NOTE | 2019-05-19 20:20 | NUR ---
PT DISCHARGED WITH PAPERWORK. EDUCATED PT REGARDING D/C INSTRUCTIONS AND MEDICATIONS. PT VERBALIZED UNDERSTANDING. TOLD PT TO FOLLOW UP WITH OB MD. PT STABLE CONDITION. ALL QUESTIONS ANSWERED.
--- NOTE | 2019-05-22 07:07 | NUR ---
Late entry. COnfirmed with RN that 0.9NS IV completed at 1920
== END 2019-05-19 20:20 | disposition home or self-care (01) ==
LOC: MED 17:15
DX: N75.0 Cyst of Bartholin's gland (principal); E11.9 Type 2 diabetes mellitus without complications; I10 Essential (primary) hypertension; F32.9 Major depressive disorder, single episode, unspecified; F41.9 Anxiety disorder, unspecified; Z79.4 Long term (current) use of insulin; Z79.899 Other long term (current) drug therapy
CPT/HCPCS: 36415; 56405; 80048; 81003; 82948; 85025; 96372; 96374; 99284; J1815; J2001; J2060; J7030